=== PATIENT | female | born 1980 | race Hispanic/Latino ===

== ENCOUNTER → 2023-01-06 | Outpatient (CLI) | payer OTHER | END | disposition home or self-care (01) | LOC: OIH 11:04 | PROVIDERS: ATTEND Nurse Practitioner Adult Health | DX: Z13.6 Encounter for screening for cardiovascular disorders (principal) | CPT/HCPCS: 75571 ==

== ENCOUNTER 2024-06-24 19:12 | Emergency (ER) | payer BC, OTHER ==
[~2024-06-24] VITALS: Ht 165.1 cm; Wt 90.3 kg
--- NOTE | 2024-06-24 19:20 | NUR ---
UA CUP PROVIDED
--- NOTE | 2024-06-24 19:34 | NUR ---
PT CARE ASSUMED AT THIS TIME
--- NOTE | 2024-06-24 20:07 | ERN ---
General Chief Complaint: Multiple Complaints Stated Complaint: ABD PAIN, BACK PAIN Time Seen by MD: 19:50 Source: patient History of Present Illness Initial Comments Patient healthy 44-year-old female complaining of throbbing right flank pain and constant left flank pain. She has a associated nausea but no emesis. No fevers and chills. She does feel that when she urinates she can not completely empty her bladder. Only other complaint is diarrhea with stomach cramps every time she defecates. That has been going on for about five years, ever since her cholecystectomy. Allergies: Coded Allergies: Sulfa (Sulfonamide Antibiotics) (Unverified Allergy, Unknown, 06/24/24) Past Medical History Past Medical History: High Cholesterol, Hypertension, Other Medical History Other: HERNIATED DISC, PLT DISORDER Past Surgical History: Tonsillectomy, Cholecystectomy Constitutional: (+) fever EENTM: (-) eye pain, (-) blurred vision, (-) tearing, (-) double vision, (-) ear pain, (-) ear discharge, (-) nose pain, (-) nose congestion, (-) throat pain, (-) Throat swelling, (-) mouth pain, (-) tooth pain, (-) mouth swelling, ( -) other documentation Respiratory: (-) cough, (-) orthopnea, (-) short of breath, (-) stridor, (-) wheezing, (-) other documentation Cardiovascular: (-) chest pain, (-) edema, (-) palpitations, (-) syncope, (-) dyspnea on exertion, (-) other documentation Gastrointestinal/Abdominal: (+) nausea Genitourinary: (-) vaginal discharge, (-) vaginal bleeding, (-) dysuria, (-) frequency, (-) hematuria, (-) pain, (-) other documentation Musculoskeletal: (-) Neck pain, (-) back pain, (-) Flank Pain, (-) joint pain, (-) joint swelling, (-) muscle pain, (-) muscle stiffness, (-) gout, (-) other documentation Skin: (-) laceration, (-) contusion, (-) abrasion, (-) abscess, (-) rash, (-) change in color, (-) change in hair, (-) change in nails, (-) diaphoresis, (-) dryness, (-) other documentation Neuro: (-) altered mental status, (-) headache, (-) syncope, (-) paralysis, (-) numbness, (-) seizure, (-) pre-existing deficit, (-) tremors, (-) weakness, (-) dizziness, (-) slurred speech, (-) vertigo, (-) other documentation Hematologic/Lymphatic: (-) anemia, (-) blood clots, (-) easy bleeding, (-) easy bruising, (-) swollen glands, (-) other documentation Physical Exam General Appearance: (+) no apparent distress Orientation: (+) alert, (+) oriented x 3 Head/Face Trauma: No Eye: bilateral eye normal inspection, bilateral eye PERRL, bilateral eye EOMI Results Laboratory and Microbiology Lab and Micro Result Laboratory Tests Test 06/24/24 19:21 06/24/24 20:38 06/24/24 21:05 Urine Color LIGHT-YELLOW (YELLOW) Urine Appearance CLEAR (CLEAR) Urine pH 5.5 (5.0-8.0) Urine Specific [place] 1.021 (1.001-1.031) Urine Protein NEGATIVE mg/dL (NEGATIVE) Urine Glucose (UA) NEGATIVE mg/dL (NEGATIVE) Urine Ketones NEGATIVE mg/dL (NEGATIVE) Urine Occult Blood LARGE (NEGATIVE) H Urine Nitrate NEGATIVE (NEGATIVE) Urine Bilirubin NEGATIVE mg/dL (NEGATIVE) Urine Urobilinogen 0.2 mg/dL (0.2-1.0) Urine Leukocyte Esterase NEGATIVE [place]/uL Urine RBC 26-50 /HPF (0-1) H Urine WBC 2-5 /HPF (0-1) H Urine Squamous Epithelial Cells FEW /HPF (0-2) Urine Bacteria RARE /HPF (None Seen) Urine HCG, Qualitative NEGATIVE (NEGATIVE) White Blood Count 12.0 K/uL (4.8-10.8) H Red Blood Count 4.66 MIL/uL (4.00-5.50) Hemoglobin 14.1 g/dL (12.0-16.0) Hematocrit 41.6 % (36-48) Mean Corpuscular Volume 89.3 fL (79-99) Mean Corpuscular Hemoglobin 30.3 pg (27.0-33.0) Mean Corpuscular Hemoglobin Concent 33.9 g/dL (32.0-36.0) Red Cell Distribution Width 13.2 % (11.0-15.5) Platelet Count 297 K/uL (130-400) Mean Platelet Volume 9.0 fL (7.5-10.5) Immature Granulocyte % (Auto) 0.7 % (0-1) Neutrophils (%) (Auto) 66.0 % (40.0-77.0) Lymphocytes (%) (Auto) 25.2 % (21.0-51.0) Monocytes (%) (Auto) 6.0 % (3.0-13.0) Eosinophils (%) (Auto) 1.6 % (0.0-8.0) Basophils (%) (Auto) 0.5 % (0.0-5.0) Neutrophils # (Auto) 7.9 K/uL (1.8-7.7) H Lymphocytes # (Auto) 3.0 K/uL (1.0-4.8) Monocytes # (Auto) 0.7 K/uL (0.1-1.0) Eosinophils # (Auto) 0.19 K/uL (0.00-0.70) Basophils # (Auto) 0.06 K/uL (0.00-0.20) Absolute Immature Granulocyte (auto 0.08 K/uL (0-1) Nucleated Red Blood Cells 0.0 % (0.0-0.19) Sodium Level 139 mmol/L (136-145) Potassium Level 3.9 mmol/L (3.5-5.1) Chloride Level 104 mmol/L (101-111) Carbon Dioxide Level 28 mmol/L (21-32) Blood Urea Nitrogen 10 mg/dL (7-18) Creatinine 0.7 mg/dL (0.5-1.0) Glomerular Filtration Rate Calc 111 mL/min (>90) Random Glucose 88 mg/dL (70-105) Total Calcium 9.1 mg/dL (8.5-10.1) Stool Occult Blood NEGATIVE (NEGATIVE) Labs Reviewed?: Yes MDM Has been negative. CT scan shows a kidney stone in her left kidney which is nonobstructing. There were what appeared to be some ovarian masses in the patient's pelvis none of them are adherent to the patient's bladder. Urine analysis is negative chemistry panel is negative a CBC shows a really slight elevation in her white blood cell count. So I do not have a good explanation for the patient's symptoms. The right flank pain does seem musculoskeletal. I advised the patient about using warming pads an Tylenol. ED Course Orders Procedure Category Date Status Time ,Urine Test LAB 06/24/24 Complete 19:49 Urinalysis Profile LAB 06/24/24 Complete 19:49 Basic Metabolic Panel LAB 06/24/24 Complete 20:16 Cbc With Differential LAB 06/24/24 Complete 20:16 Cyclobenzaprine Hcl PHA 06/24/24 Complete (Cyclobenzaprine Hcl 20:30 Occult Blood Stool LAB 06/24/24 Complete Single Only 20:32 Iohexol (Omnipaque) PHA 06/24/24 Complete 21:25 Ct Abdomen/Pelvis CT 06/24/24 Resulted W/Wo Contras 20:16 Current Medications Medications (Trade) Dose Ordered Sig/Eliel Route PRN Reason Start Time Stop Time Status Last Admin Dose Admin Cyclobenzaprine HCl (Cyclobenzaprine HCl) 10 mg ONCE ONCE PO 06/24/24 20:30 06/24/24 20:31 DC 06/24/24 20:24 Iohexol (Omnipaque) 75 ml STK-MED ONCE IV 06/24/24 21:25 06/24/24 21:25 DC Vital Signs Date Time Temp Pulse Resp B/P (MAP) Pulse Ox O2 Delivery O2 Flow Rate FiO2 06/24/24 19:41 97.9 67 17 142/81 100 Room Air* 0 21 06/24/24 19:13 98.1 63 20 163/87 99 Room Air DX & DISP Disposition: Discharge Departure Impression: Primary Impression: Renal stone Condition: Stable Additional Instructions: Right-sided back pain appears to be due to musculoskeletal problems or constipation. Treat the area with heating pads and massages. Also GoLYTELY is a good cathartic it can be obtained [id number] in any pharmacy. You do have a stone in your left kidney but it is not obstructing anything. You have a slight elevation in her white blood cell count please come back if you start to have fevers or chills other signs of infection. Referrals: CHAD HENDRICKS NP (PCP) YADIEL THAYER MD June 24, 2024 20:07
[2024-06-24 20:08] LABS: APPEARANCE,URINE CLEAR (CLEAR); BILIRUBIN,URINE NEGATIVE (NEGATIVE); COLOR,URINE LIGHT-YELLOW (YELLOW); GLUCOSE, URINE (UA) NEGATIVE (NEGATIVE); KETONES,URINE NEGATIVE (NEGATIVE); LEUKOCYTE ESTERASE ,URINE NEGATIVE Leu/uL (NEGATIVE); NITRATE,URINE NEGATIVE (NEGATIVE); OCCULT BLOOD,URINE LARGE (NEGATIVE); PH,URINE 5.5 (5.0-8.0); PROTEIN,URINE NEGATIVE (NEGATIVE); UROBILINOGEN,URINE 0.2 mg/dL (0.2-1.0)
[2024-06-24 20:09] LABS: ADD UA MICROSCOPIC YES; HCG,QUALITATIVE URINE NEGATIVE (NEGATIVE)
[2024-06-24 20:11] LABS: BACTERIA,URINE RARE /HPF (None Seen); MUCUS,URINE RARE LPF (None Seen); RBC,URINE 26-50 /HPF (0-1); SQUAMOUS EPITHELIAL CELL,UR FEW /HPF (0-2)
[2024-06-24] MEDS: CYCLOBENZAPRINE HCL 10 MG TABLET PO ONE (20:24)
[2024-06-24 20:46] LABS: BASOPHILS # (AUTO) 0.06 K/uL (0.00-0.20); BASOPHILS % (AUTO) 0.5 % (0.0-5.0); EOSINOPHILS # (AUTO) 0.19 K/uL (0.00-0.70); EOSINOPHILS % (AUTO) 1.6 % (0.0-8.0); HEMATOCRIT 41.6 % (36-48); IMMATURE GRANULOCYTE ABSOLUTE 0.08 K/uL (0-1); LYMPHOCYTES % (AUTO) 25.2 % (21.0-51.0); MEAN CORPUSCULAR HEMOGLOBIN 30.3 pg (27.0-33.0); MEAN CORPUSCULAR HGB CONC 33.9 g/dL (32.0-36.0); MEAN CORPUSCULAR VOLUME 89.3 fL (79-99); MONOCYTES # (AUTO) 0.7 K/uL (0.1-1.0); NEUTROPHILS # (AUTO) 7.9 K/uL (1.8-7.7); PLATELET COUNT (AUTO) 297 K/uL (130-400); RED BLOOD CELL COUNT(AUTO) 4.66 MIL/uL (4.00-5.50); RED CELL DISTRIBUTION WIDTH 13.2 % (11.0-15.5)
[2024-06-24 20:55] LABS: CREATININE 0.7 mg/dL (0.5-1.0); POTASSIUM 3.9 mmol/L (3.5-5.1)
[2024-06-24] MEDS ORDERED: IOHEXOL-350 75 ML VIAL IV ONE (21:25)
--- NOTE | 2024-06-24 22:04 | HMCIMG ---
CT ABDOMEN/PELVIS W/WO CONTRAS CLINICAL HISTORY: flank pain, urinary frequency COMPARISON: None TECHNIQUE: Sequential axial images of abdomen and pelvis without and with 75 mL of Omnipaque 350 IV contrast with sagittal and coronal reconstructions. CT was performed with one or more of the following dose reduction techniques: automated exposure control, adjustment of the mA and/or kV according to patient size, or use of iterative reconstruction technique. FINDINGS: Lung bases are clear. The gallbladder is surgically absent. The liver and spleen are unremarkable. The pancreas and adrenal glands and right kidney and bladder are unremarkable. Note is made of a nonobstructive small left renal calculus. There is no identified bowel obstruction. There are scattered sigmoid colon diverticuli. There is moderate amount of fecal material in the colon. There is no free air or free fluid. There is no bulky abdominal or retroperitoneal lymphadenopathy. Uterus is unremarkable. The appendix is within normal limits. The bony structures demonstrate vacuum disc phenomena at L4-5 and L5-S1. IMPRESSION: Nonobstructive left nephrolithiasis. The bladder and right kidney are unremarkable. Constipation. Changes of prior cholecystectomy
[2024-06-24 22:23] VITALS: BP 132/82; PULSE 75; RESP 16; TEMP 98.1; O2SAT 100
== END 2024-06-24 22:30 | disposition home or self-care (01) ==
LOC: EDH 19:12
DX: N20.0 Calculus of kidney (principal); E78.00 Pure hypercholesterolemia, unspecified; I10 Essential (primary) hypertension; Z88.2 Allergy status to sulfonamides; Z90.49 Acquired absence of other specified parts of digestive tract; Z90.89 Acquired absence of other organs
CPT/HCPCS: 99284; 74178; 80048; 85025; 82272; 81001; 81025; 36415; Q9967; 82270